=== PATIENT | female | born 1965 | race African-American/Black ===

== ENCOUNTER 2024-02-01 05:36 | Observation (INO) | payer MEDICARE, OTHER ==
[2024-02-01] MEDS ORDERED: PROPOFOL 20 ML ONE ×2 (06:20→07:46)
[2024-02-01] MEDS ORDERED: Fentanyl 250 MCG/5 ML VIAL ONE (06:20)
[2024-02-01] MEDS ORDERED: Midazolam HCl 2 mg/2 ml Vial ONE (06:20)
[2024-02-01] MEDS ORDERED: Dexamethasone 20 MG/5 ML VIAL ONE (06:20)
[2024-02-01] MEDS ORDERED: Rocuronium Bromide 10 MG/ML (10ML VIAL) ONE (06:20)
[2024-02-01] MEDS ORDERED: Ondansetron PF 4 MG/2 ML Vial ONE (06:20)
[2024-02-01] MEDS ORDERED: Lidocaine 1% PF 5 ML VIAL ONE (06:20)
[2024-02-01] MEDS ORDERED: Sevoflurane 250 ML INH ANEST BOTTLE ONE (06:25)
[2024-02-01] MEDS ORDERED: Lidocaine 4% Topical Sol 50 ML BOT ONE (06:25)
[2024-02-01] MEDS ORDERED: CEFAZOLIN 2 GM VIAL ONE (06:57)
[2024-02-01] MEDS ORDERED: ePHEDrine Sulfate 50 MG/10 ML VIAL ONE (07:14)
[2024-02-01] MEDS ORDERED: Lidocaine 1% w/Epinephrine 1:100K 20 ML VIAL ONE (07:31)
[2024-02-01] MEDS ORDERED: SUGAMMADEX SODIUM 200 MG/2 ML VIAL ONE (07:42)
[2024-02-01] MEDS ORDERED: Ondansetron PF 4 MG/2 ML Vial IVP PRN (08:56)
[2024-02-01] MEDS ORDERED: fentaNYL 50 mcg/mL 1 mL Vial ONE (09:30)
[2024-02-01] MEDS: Acetaminophen/Codeine 30-300mg Tablet PO PRN (10:43)
[2024-02-01 11:29] VITALS: BMI 24.9
[2024-02-01] MEDS: Carvedilol 6.25 MG TAB PO SCH ×2 (11:57→20:53)
[2024-02-01] MEDS: Calcitriol 0.25 MCG CAP PO SCH ×2 (11:57→20:53)
[2024-02-01] MEDS: Hydrochlorothiazide 25 MG TAB PO SCH (11:59)
[2024-02-01] MEDS: Acetaminophen 325 MG TAB PO SCH (12:00)
[2024-02-01] MEDS: Hydroxychloroquine Sulfate 200 MG TAB PO SCH (12:00)
[2024-02-01] MEDS: Calcium Carbonate 500 MG ChewTAB PO SCH (16:46)
[2024-02-02 04:18] LABS: Calcium 9.4 mg/dL (7.8-10.44)
[2024-02-02 04:34] VITALS: TEMP 98.4
[2024-02-02] MEDS: Hydroxychloroquine Sulfate 200 MG TAB PO SCH (08:47)
[2024-02-02 08:49] VITALS: BP 152/97
[2024-02-02] MEDS: Hydrochlorothiazide 25 MG TAB PO SCH (08:49)
== END 2024-02-02 10:15 | disposition home or self-care (01) ==
LOC: CSHSDC 05:36 → CSHTELE 10:22
PROVIDERS: ADMIT Otolaryngology Plastic Surgery within the Head & Neck; ATTEND Otolaryngology Plastic Surgery within the Head & Neck
PROC: 0GTK0ZZ Resection of Thyroid Gland, Open Approach (ICD-10-PCS; principal; 2024-02-01)
DX: E04.2 Nontoxic multinodular goiter (principal)
CPT/HCPCS: 60240; 82310; 83970; 93005; 94760; J1100; J2250; J2405; J2704; J3010 ×2; 36415; 88307; 93010

== ENCOUNTER 2024-03-06 09:27 | Outpatient (CLI) | payer MEDICAID, MEDICARE ==
[~2024-03-06 09:27] MED LIST: Iopamidol 300 61% 100 ML VIAL FS ONE
== END 2024-03-06 09:28 | disposition home or self-care (01) ==
LOC: CSHCT 09:27
PROVIDERS: ATTEND Nurse Practitioner Family
DX: R59.1 Generalized enlarged lymph nodes (principal); F17.200 Nicotine dependence, unspecified, uncomplicated
CPT/HCPCS: 36415; 71260; 82565